=== PATIENT | female | born 1990 | race American Indian/Alaskan Native ===

== ENCOUNTER 2016-12-29 13:37 | Emergency (ER) | payer SELFPAY ==
[2016-12-29 14:04] VITALS: BP 124/83
--- NOTE | 2016-12-29 14:11 | Emergency Department Report ---
Chief Complaint: Abdominal Pain Stated Complaint: SHARP VAGINAL PAIN Time Seen by Provider: 12/29/16 14:06 - HPI History of Present Illness: 26-year-old female presents today with suprapubic pain 2 hours. Positive for minimal vaginal discharge. Denies vaginal bleeding, fevers, chills, nausea, vomiting, chest pain, shortness breath, urinary symptoms. - ROS Review of Systems: Per HPI - Exam Vital Signs: Vital Signs 12/29/16 14:01 Temperature 98.6 F Pulse Rate 61 Respiratory 18 Rate Blood Pressure 124/83 O2 Sat by Pulse 100 Oximetry Physical Exam: General: A 26-year-old female in no acute distress. Well-developed, well- nourished. CV: Regular rate and rhythm. Lungs: Clear to auscultation bilaterally. Abdomen: No tenderness to palpation. No guarding or rebound tenderness. Normal bowel sounds. MSE screening note: Focused history and physical exam performed. Due to findings the following was ordered: ED Disposition for MSE Condition: Stable Instructions: Abdominal Pain (ED)
[2016-12-29 14:35] LABS: Basophils % (Auto) 0.2 % (0.0-1.8); Eosinophils % (Auto) 1.1 % (0.0-4.3); Hematocrit 40.6 % (30.3-42.9); Hemoglobin 13.5 gm/dl (10.1-14.3); Mean Corpuscular HGB Conc 33 % (30-34); Mean Corpuscular Hemoglobin 29 pg (28-32); Mean Corpuscular Volume 88 fl (79-97); Platelet Count 218 K/mm3 (140-440); Red Blood Count 4.61 M/mm3 (3.65-5.03); Red Cell Distribution Width 13.6 % (13.2-15.2); White Blood Count 6.8 K/mm3 (4.5-11.0)
[2016-12-29 14:43] LABS: Amylase 45 units/L (27-131); Anion Gap 15 mmol/L; BUN/Creatinine Ratio 16.66; Blood Urea Nitrogen 10 mg/dL (7-17); Carbon Dioxide 27 mmol/L (22-30); Chloride 97.3 mmol/L (98-107); Glucose 96 mg/dL (65-100); Lipase 20 units/L (13-60); Potassium 4.3 mmol/L (3.6-5.0); Sodium 135 mmol/L (137-145)
--- NOTE | 2016-12-31 15:18 | ED Elopement Review ---
ED Pt Elopement review - Results review Lab results: Laboratory Tests 12/29/16 12/29/16 14:16 14:16 WBC 6.8 RBC 4.61 Hgb 13.5 Hct 40.6 MCV 88 MCH 29 MCHC 33 RDW 13.6 Plt Count 218 Lymph % (Auto) 27.3 [place] % (Auto) 10.4 H Eos % (Auto) 1.1 Baso % (Auto) 0.2 Lymph # 1.9 [place] # 0.7 Eos # 0.1 Baso # 0.0 Seg Neutrophils % 61.0 Seg Neutrophils # 4.1 Sodium 135 L Potassium 4.3 Chloride 97.3 L Carbon Dioxide 27 Anion Gap 15 BUN 10 Creatinine 0.6 L Estimated GFR > 60 BUN/Creatinine Ratio 16.66 Glucose 96 Calcium 9.0 Amylase 45 Lipase 20 - Call Back decision Pt Call Back Decision: No action required
== END 2016-12-29 14:15 | disposition left against medical advice (07) ==
LOC: ED 13:37
DX: N89.8 Other specified noninflammatory disorders of vagina (principal); R10.30 Lower abdominal pain, unspecified; Z53.21 Procedure and treatment not carried out due to patient leaving prior to being seen by health care provider
CPT/HCPCS: 36415; 80048; 82150; 83690; 85025

== ENCOUNTER 2019-11-13 02:49 | Emergency (ER) | payer SELFPAY ==
[2019-11-13 03:20] VITALS: BP 126/79
[2019-11-13] MEDS ORDERED: IBUPROFEN 600 MG TAB PO ONE (04:47)
[2019-11-13] MEDS ORDERED: ONDANSETRON 4 MG ODT TAB PO ONE (04:47)
[2019-11-13] MEDS ORDERED: AMOXICILLIN/K CLAV 875/125MG TAB PO ONE (04:47)
[2019-11-13] MEDS ORDERED: predniSONE 20 MG TAB PO ONE (04:47)
[2019-11-13] MEDS ORDERED: LIDOCAINE VISCOUS 2% 15 ML ORAL LIQD PO ONE (04:47)
--- NOTE | 2019-11-13 04:47 | Emergency Department Report ---
- General Chief Complaint: Upper Respiratory Infection Stated Complaint: FLU SX/VOMITING/FEVER/THROAT PAIN SWELLING Source: patient Mode of arrival: Ambulatory Limitations: No Limitations - History of Present Illness Initial Comments: Patient is a 29-year-old -Turk[place] female with no past medical history who presents to the ED with complaint of acute onset persistent nasal and sinus congestion, dry cough, frontal sinus pressure, sore throat with dysphagia intermittently for the last 2 weeks, worse in the last 2 days. Patient states that she has been using [id number] medications with no relief. Patient denies chest pain, shortness of breath, abdominal pain, nausea, vomiting, diarrhea, dizziness, syncope, dysuria, urinary frequency and urgency, fever and chills. MD Complaint: cough, sore throat, rhinorrhea, nasal congestion, sinus pain -: Sudden, week(s) (2) Severity: severe Severity scale (0 -10): 7 Quality: sharp, aching Consistency: constant Improves With: nothing Worsens With: nothing Associated Symptoms: denies other symptoms, myalgias, headache, rhinorrhea, nasal congestion, sore throat, cough. denies: fever, chills, diaphoresis, shortness of breath, nausea, vomiting, diarrhea, rash, right sweats, epistaxis, hoarseness Treatments Prior to Arrival: none - Related Data Previous Rx's Medication Instructions Recorded Last Taken Type HYDROcodone/APAP 10-325 [[place] 1 each PO Q4-6H PRN #20 tablet 09/06/14 Unknown Rx 10-325 mg TAB] levoFLOXacin [Levaquin] 500 mg PO QDAY #7 tablet 09/06/14 Unknown Rx metroNIDAZOLE [Flagyl] 500 mg PO TID #21 tablet 09/06/14 Unknown Rx Amoxicillin [Trimox CAP] 500 mg PO Q8H #30 capsule 11/13/19 Unknown Rx Cetirizine HCl [Zyrtec 10mg tab] 10 mg PO DAILY #30 tablet 11/13/19 Unknown Rx Ibuprofen [Motrin] 800 mg PO Q8HR PRN #24 tablet 11/13/19 Unknown Rx Lidocaine Viscous 2% 10 ml PO Q6H PRN #120 ml 11/13/19 Unknown Rx methylPREDNISolone [Medrol 4MG 4 mg PO DAILY #21 tab.ds.pk 11/13/19 Unknown Rx DOSEPAK (21 tabs)] Allergies Allergy/AdvReac Type Severity Reaction Status Date / Time No Known Allergies Allergy Unverified 01/07/14 17:24 ED Review of Systems ROS: Stated complaint: FLU SX/VOMITING/FEVER/THROAT PAIN SWELLING Other details as noted in HPI Constitutional: denies: chills, fever Eyes: denies: eye pain, eye discharge, vision change ENT: throat pain, congestion. denies: ear pain Respiratory: cough. denies: shortness of breath, wheezing Cardiovascular: denies: chest pain, palpitations Endocrine: no symptoms reported Gastrointestinal: denies: abdominal pain, nausea, diarrhea Genitourinary: denies: urgency, dysuria, discharge Musculoskeletal: denies: back pain, joint swelling, arthralgia Skin: denies: rash, lesions Neurological: headache. denies: weakness, paresthesias Psychiatric: denies: anxiety, depression Hematological/Lymphatic: denies: easy bleeding, easy bruising ED Past Medical Hx - Past Medical History Previous Medical History?: No Additional medical history: UTI - Surgical History Past Surgical History?: No - Social History Smoking Status: Never Smoker Substance Use Type: None - Medications Home Medications: Home Medications Medication Instructions Recorded Confirmed Last Taken Type HYDROcodone/APAP 10-325 [[place] 1 each PO Q4-6H PRN #20 tablet 09/06/14 Unknown Rx 10-325 mg TAB] levoFLOXacin [Levaquin] 500 mg PO QDAY #7 tablet 09/06/14 Unknown Rx metroNIDAZOLE [Flagyl] 500 mg PO TID #21 tablet 09/06/14 Unknown Rx Amoxicillin [Trimox CAP] 500 mg PO Q8H #30 capsule 11/13/19 Unknown Rx Cetirizine HCl [Zyrtec 10mg tab] 10 mg PO DAILY #30 tablet 11/13/19 Unknown Rx Ibuprofen [Motrin] 800 mg PO Q8HR PRN #24 tablet 11/13/19 Unknown Rx Lidocaine Viscous 2% 10 ml PO Q6H PRN #120 ml 11/13/19 Unknown Rx methylPREDNISolone [Medrol 4MG 4 mg PO DAILY #21 tab.ds.pk 11/13/19 Unknown Rx DOSEPAK (21 tabs)] ED Physical Exam - General Limitations: No Limitations General appearance: alert, in no apparent distress - Head Head exam: Present: atraumatic, normocephalic - Eye Eye exam: Present: normal appearance, PERRL, EOMI Pupils: Present: normal accommodation - ENT ENT exam: Present: mucous membranes moist, TM's normal bilaterally, normal external ear exam, other (grossly congested nasal passages; erythematous oropharynx and tonsils) - Neck Neck exam: Present: normal inspection, full ROM, lymphadenopathy - Respiratory Respiratory exam: Present: normal lung sounds bilaterally. Absent: respiratory distress, wheezes, rhonchi, chest wall tenderness, accessory muscle use, decr eased breath sounds - Cardiovascular Cardiovascular Exam: Present: regular rate, normal rhythm, normal heart sounds. Absent: systolic murmur, diastolic murmur, rubs, gallop - GI/Abdominal GI/Abdominal exam: Present: soft, normal bowel sounds. Absent: tenderness, guarding, rebound, hyperactive bowel sounds - Extremities Exam Extremities exam: Present: normal inspection, full ROM, normal capillary refill - Back Exam Back exam: Present: normal inspection, full ROM. Absent: tenderness, CVA tenderness (R), CVA tenderness (L), muscle spasm, paraspinal tenderness, vertebral tenderness - Neurological Exam Neurological exam: Present: alert, oriented X3, CN II-XII intact, normal gait, reflexes normal - Psychiatric Psychiatric exam: Present: normal affect, normal mood - Skin Skin exam: Present: warm, dry, intact, normal color. Absent: rash ED Course Vital Signs 11/13/19 03:00 Temperature 98.5 F Pulse Rate 81 Respiratory 18 Rate Blood Pressure 126/79 O2 Sat by Pulse 99 Oximetry ED Medical Decision Making - Medical Decision Making This is a 29-year-old female who presented to the ED with acute onset persistent nasal and sinus congestion, dry cough, sore throat, persistent diffuse body aches and pains and headache. In the ED, patient is alert and oriented 3 and his abdomen distress. Patient was treated for pain in the ED and discharged home on medications, and advised to follow-up with her primary care physician in 7-10 days for reevaluation or return to the ED immediately if symptoms get worse. - Differential Diagnosis Strep pharyngitis; URI; bronchitis; Flu-like; sinusitis Critical care attestation.: If time is entered above; I have spent that time in minutes in the direct care of this critically ill patient, excluding procedure time. ED Disposition Clinical Impression: Acute upper respiratory infection, Acute non-recurrent frontal sinusitis Acute pharyngitis Qualifiers: Pharyngitis/tonsillitis etiology: other specified organisms Qualified Code(s): J02.8 - Acute pharyngitis due to other specified organisms Disposition: DC- TO HOME OR SELFCARE Is pt being admited?: No Does the pt Need Aspirin: No Condition: Stable Instructions: Acute Bacterial Rhinosinusitis (ED), Pharyngitis (ED), Upper Respiratory Infection (ED) Additional Instructions: Take medications with food, drink plenty of fluids and follow-up with your primary care physician in 7-10 days for reevaluation. Return to the ED immediately if symptoms get worse. Prescriptions: Lidocaine Viscous 2% 10 ml PO Q6H PRN #120 ml PRN Reason: Pain , Severe (7-10) methylPREDNISolone [Medrol 4MG DOSEPAK (21 tabs)] 4 mg PO DAILY #21 tab.ds.pk Ibuprofen [Motrin] 800 mg PO Q8HR PRN #24 tablet PRN Reason: Pain , Severe (7-10) Amoxicillin [Trimox CAP] 500 mg PO Q8H #30 capsule Cetirizine HCl [Zyrtec 10mg tab] 10 mg PO DAILY #30 tablet Referrals: [facility] [Outside] - 7-10 days Forms: Work/School Release Form(ED) Time of Disposition: 04:45 Print Language: FRENCH
[2019-11-13 05:33] LABS: Bacteria,Urine 1+ /HPF (Negative); Bilirubin,Urine NEG (Negative); Blood,Urine NEG (Negative); Color,Urine Straw (Yellow); Mucus,Urine FEW /HPF; Protein,Urine <15 mg/dL mg/dL (Negative); Urobilinogen,Urine < 2.0 mg/dL (<2.0)
[2019-11-13 05:35] LABS: HCG Qualitative,Urine Negative (Negative)
== END 2019-11-13 05:35 | disposition home or self-care (01) ==
LOC: ED 02:49
DX: J20.8 Acute bronchitis due to other specified organisms (principal); J01.10 Acute frontal sinusitis, unspecified; Z79.899 Other long term (current) drug therapy
CPT/HCPCS: 81001; 81025; 99283; J7512; Q0162